=== PATIENT | male | born 1965 | race Caucasian/White ===

== ENCOUNTER → 2016-12-27 | Outpatient (CLI) | payer OTHER ==
[~2016-12-27] MED LIST: AVPAK AZITHROM250 M1 PO; CEFAZOLIN IV; CLINDAMYCIN300 MG PO; CUBICIN500 MG IV; CYCLOBENZAPRINE10 MG PO; DELTASONE5 MG PO; FOLIC ACID1 MG PO; HYDROCODONE BIT1 T11 PO; IBU800 M1 PO; KEFLEX500 MG PO; LASIX10 MG/M1 PO; LASIX20 MG PO; LEVAQUIN750 MG PO; LOMOTIL 0.025 M1 TA1 PO; MELOXICAM PO; MOBIC15 MG PO; MOTRIN600 MG PO; MOTRIN800 MG PO; NORFLEX100 MG PO; PERCOCET 325 MG1 TA2 PO; PERCOCET 325 MG1 TA7 PO; PREDNICOT10 MG PO; PREDNISONE10 MG PO; PREDNISONE20 MG PO; SULFAZINE500 MG PO; ZOFRAN ODT4 MG SL; [UNRECOGNIZED DRUG - OTHER] IV; [UNRECOGNIZED DRUG - OTHER] IV
[2016-12-27 08:33] LABS: BASO % 0.2 % (0.0-1.0); HEMATOCRIT 42.7 % (42.0-52.0); HEMOGLOBIN 14.7 g/dl (14.0-18.0); IG # 0.1 10*3/uL (0.0-0.1); LYMPH # 3.5 10*3/uL (1.3-4.4); LYMPH % 25.9 % (27.0-41.0); MEAN CELL VOLUME 92.4 fl (80.0-94.0); MEAN CORPUSCULAR HGB 31.8 pg (27.0-31.0); MEAN CORPUSCULAR HGB CONC 34.4 g/dl (33.0-37.0); MONO # 0.4 10*3/uL (0.1-1.0); MONO % 3.2 % (3.0-9.0); NEUT # 9.4 10*3/uL (2.3-7.9); NEUT % 69.7 % (47.0-73.0); PLATELET COUNT AUTOMATED 256 10*3/uL (130-400); RED BLOOD COUNT 4.62 10*6/uL (4.50-5.90); RED CELL DISTRI WIDTH 13.8 % (0-14.5); WHITE BLOOD COUNT 13.4 10*3/uL (4.8-10.8)
[2016-12-27 09:03] LABS: ALBUMIN 2.7 gm/dl (3.1-4.5); ALKALINE PHOSPHATASE 82 U/L (45-117); BILIRUBIN, DIRECT < 0.1 mg/dL (0.0-0.2); BILIRUBIN, TOTAL 0.4 mg/dl (0.2-1.0); C-REACTIVE PROTEIN 2.31 MG/DL (0-0.3); EST GLOM FILT AFRICAN AMERICAN > 60 ml/min; SGOT/AST 14 IU/L (3-35); SGPT/ALT 14 U/L (12-78); TOTAL PROTEIN 6.6 gm/dL (6.4-8.2)
== END | disposition home or self-care (01) ==
LOC: LAB 03:50 → RESCLI 03:50
PROVIDERS: Internal Medicine Rheumatology
DX: M06.9 Rheumatoid arthritis, unspecified (principal); Z79.899 Other long term (current) drug therapy

== ENCOUNTER → 2017-01-03 | Outpatient (CLI) | payer OTHER | END | disposition home or self-care (01) | LOC: LAB 02:07 → RESCLI 02:07 | DX: E03.8 Other specified hypothyroidism (principal) ==

== ENCOUNTER → 2017-04-11 | Outpatient (CLI) | payer OTHER | END | disposition home or self-care (01) | LOC: RESCLI 04:10 | DX: J44.1 Chronic obstructive pulmonary disease with (acute) exacerbation (principal); G47.30 Sleep apnea, unspecified; M06.9 Rheumatoid arthritis, unspecified; E66.01 Morbid (severe) obesity due to excess calories; R60.0 Localized edema; F17.210 Nicotine dependence, cigarettes, uncomplicated ==

== ENCOUNTER → 2017-06-06 | Outpatient (CLI) | payer OTHER | END | disposition home or self-care (01) | LOC: RESCLI 03:16 | DX: J44.9 Chronic obstructive pulmonary disease, unspecified (principal); M06.9 Rheumatoid arthritis, unspecified; F17.210 Nicotine dependence, cigarettes, uncomplicated; G47.30 Sleep apnea, unspecified; E66.01 Morbid (severe) obesity due to excess calories; J01.90 Acute sinusitis, unspecified; R60.0 Localized edema; E03.9 Hypothyroidism, unspecified; Z71.9 Counseling, unspecified; F17.200 Nicotine dependence, unspecified, uncomplicated ==

== ENCOUNTER → 2017-06-13 | Outpatient (CLI) | payer OTHER | END | disposition home or self-care (01) | LOC: RESCLI 01:58 | DX: J44.9 Chronic obstructive pulmonary disease, unspecified (principal); M06.9 Rheumatoid arthritis, unspecified; F17.210 Nicotine dependence, cigarettes, uncomplicated; G47.30 Sleep apnea, unspecified; E66.01 Morbid (severe) obesity due to excess calories; R60.0 Localized edema; E03.9 Hypothyroidism, unspecified; Z71.6 Tobacco abuse counseling ==

== ENCOUNTER 2017-07-23 12:05 | Emergency (ER) | payer OTHER ==
[~2017-07-23] VITALS: Ht 185.4 cm; Wt 124.7 kg
[2017-07-23] MEDS ORDERED: CEFADROXIL500 M1 PO (12:25)
== END 2017-07-23 13:43 | disposition home or self-care (01) ==
LOC: ED 12:05
DX: M70.21 Olecranon bursitis, right elbow (principal); F17.200 Nicotine dependence, unspecified, uncomplicated; Z88.8 Allergy status to other drugs, medicaments and biological substances; Z79.899 Other long term (current) drug therapy; Y93.89 Activity, other specified

== ENCOUNTER 2017-07-26 11:50 | Emergency (ER) | payer OTHER ==
[~2017-07-26] VITALS: Ht 185.4 cm; Wt 136.1 kg
[~2017-07-26 11:50] MED LIST changes: +CEFADROXIL500 M1 PO
[2017-07-26 12:48] LABS: BASO # 0.1 10*3/uL (0.0-0.1); BASO % 0.5 % (0.0-1.0); EOS % 0.1 % (1.0-4.0); HEMOGLOBIN 14.8 g/dl (14.0-18.0); LYMPH # 2.4 10*3/uL (1.3-4.4); LYMPH % 16.9 % (27.0-41.0); MEAN CELL VOLUME 90.3 fl (80.0-94.0); MEAN CORPUSCULAR HGB 31.1 pg (27.0-31.0); MEAN CORPUSCULAR HGB CONC 34.4 g/dl (33.0-37.0); MONO # 0.9 10*3/uL (0.1-1.0); MONO % 6.5 % (3.0-9.0); NEUT # 10.4 10*3/uL (2.3-7.9); NEUT % 73.9 % (47.0-73.0); PLATELET COUNT AUTOMATED 243 10*3/uL (130-400); RED BLOOD COUNT 4.76 10*6/uL (4.50-5.90); RED CELL DISTRI WIDTH 13.5 % (0-14.5); WHITE BLOOD COUNT 14.1 10*3/uL (4.8-10.8)
[2017-07-26 13:03] LABS: ALBUMIN 3.3 gm/dl (3.1-4.5); ALKALINE PHOSPHATASE 79 U/L (45-117); BUN 10 mg/dl (7-24); CHLORIDE 109 mmol/L (98-107); CREATININE 1.25 mg/dL (0.70-1.30); SGOT/AST 16 IU/L (3-35); SGPT/ALT 25 U/L (12-78); SODIUM 141 mmol/L (136-145); TOTAL PROTEIN 7.3 gm/dL (6.4-8.2)
== END 2017-07-26 16:06 | disposition short-term general hospital (02) ==
LOC: EDSTATUS 11:50 → ED 11:52
PROVIDERS: Physician Assistant
DX: M71.121 Other infective bursitis, right elbow (principal); Z88.8 Allergy status to other drugs, medicaments and biological substances; Z79.899 Other long term (current) drug therapy

== ENCOUNTER → 2017-09-11 | Outpatient (CLI) | payer OTHER | END | disposition home or self-care (01) | LOC: RESCLI 01:18 | DX: E03.9 Hypothyroidism, unspecified (principal); M06.9 Rheumatoid arthritis, unspecified; G47.30 Sleep apnea, unspecified; E66.01 Morbid (severe) obesity due to excess calories; J44.9 Chronic obstructive pulmonary disease, unspecified; J06.9 Acute upper respiratory infection, unspecified; R03.0 Elevated blood-pressure reading, without diagnosis of hypertension; R60.0 Localized edema; F17.210 Nicotine dependence, cigarettes, uncomplicated; Z71.6 Tobacco abuse counseling ==

== ENCOUNTER → 2017-10-10 | Outpatient (CLI) | payer OTHER | END | disposition home or self-care (01) | LOC: RESCLI 01:35 | DX: J44.1 Chronic obstructive pulmonary disease with (acute) exacerbation (principal); M06.9 Rheumatoid arthritis, unspecified; E03.8 Other specified hypothyroidism; E66.01 Morbid (severe) obesity due to excess calories; Z79.52 Long term (current) use of systemic steroids; Z72.0 Tobacco use ==

== ENCOUNTER → 2017-12-20 | Outpatient (CLI) | payer OTHER ==
[2017-12-20 11:47] LABS: HEMATOCRIT 50.6 % (42.0-52.0); MEAN CELL VOLUME 87.4 fl (80.0-94.0); MEAN CORPUSCULAR HGB 29.4 pg (27.0-31.0); MEAN CORPUSCULAR HGB CONC 33.6 g/dl (33.0-37.0); MEAN PLATELET VOLUME 9.8 fl (9.6-12.3); PLATELET COUNT AUTOMATED 338 10*3/uL (130-400); RED BLOOD COUNT 5.79 10*6/uL (4.50-5.90); RED CELL DISTRI WIDTH 13.4 % (0-14.5); WHITE BLOOD COUNT 16.9 10*3/uL (4.8-10.8)
[2017-12-20 11:52] LABS: ALBUMIN 3.2 gm/dl (3.1-4.5); ALKALINE PHOSPHATASE 98 U/L (45-117); BILIRUBIN, DIRECT < 0.1 mg/dL (0.0-0.2); CREATININE 1.13 mg/dL (0.70-1.30); SGOT/AST 14 IU/L (3-35); SGPT/ALT 20 U/L (12-78); TOTAL PROTEIN 7.8 gm/dL (6.4-8.2)
[2017-12-20 13:21] LABS: PLATELET SUFFICIENCY NORMAL (NORMAL); TOTAL CELLS COUNTED 100 #CELLS
== END | disposition home or self-care (01) ==
LOC: LAB 10:39
PROVIDERS: Internal Medicine Rheumatology
DX: M05.79 Rheumatoid arthritis with rheumatoid factor of multiple sites without organ or systems involvement (principal); Z79.899 Other long term (current) drug therapy

== ENCOUNTER → 2018-01-24 | Outpatient (CLI) | payer OTHER ==
[2018-01-24 12:47] LABS: URINE AMPHETAMINES < 1000 (1000ng/ml); URINE BARBITURATES < 200 (200ng/ml); URINE BENZODIAZEPINES < 200 (200ng/ml); URINE CANNABINOIDS (THC) < 50 (50ng/ml); URINE COCAINE < 300 (300ng/ml); URINE METHADONE < 300 (300ng/ml); URINE OPIATES > 300 (300ng/ml)
[2018-01-24 12:51] LABS: URINE PHENCYCLIDINE < 25 (25ng/ml)
== END | disposition home or self-care (01) ==
LOC: RESCLI 02:04 → LAB 02:04 → RESCLI 08:15
PROVIDERS: Internal Medicine
DX: M06.9 Rheumatoid arthritis, unspecified (principal)

== ENCOUNTER → 2018-02-07 | Outpatient (CLI) | payer OTHER | END | disposition home or self-care (01) | LOC: RESCLI 01:23 | DX: J44.9 Chronic obstructive pulmonary disease, unspecified (principal); F32.1 Major depressive disorder, single episode, moderate; E03.8 Other specified hypothyroidism; M06.9 Rheumatoid arthritis, unspecified; R60.9 Edema, unspecified; E66.01 Morbid (severe) obesity due to excess calories; G47.33 Obstructive sleep apnea (adult) (pediatric); Z87.891 Personal history of nicotine dependence ==

== ENCOUNTER → 2018-03-20 | Outpatient (CLI) | payer OTHER | END | disposition home or self-care (01) | LOC: RESCLI 02:12 | DX: E03.8 Other specified hypothyroidism (principal); F32.1 Major depressive disorder, single episode, moderate; J44.9 Chronic obstructive pulmonary disease, unspecified; M06.9 Rheumatoid arthritis, unspecified; G47.33 Obstructive sleep apnea (adult) (pediatric); E66.09 Other obesity due to excess calories; R60.9 Edema, unspecified; F17.210 Nicotine dependence, cigarettes, uncomplicated; Z68.39 Body mass index [BMI] 39.0-39.9, adult; Z88.8 Allergy status to other drugs, medicaments and biological substances ==

== ENCOUNTER → 2018-06-12 | Outpatient (CLI) | payer OTHER | END | disposition home or self-care (01) | LOC: RESCLI 03:42 | DX: F32.9 Major depressive disorder, single episode, unspecified (principal); M06.9 Rheumatoid arthritis, unspecified; R60.9 Edema, unspecified; E03.9 Hypothyroidism, unspecified; G47.30 Sleep apnea, unspecified; J44.1 Chronic obstructive pulmonary disease with (acute) exacerbation; L98.9 Disorder of the skin and subcutaneous tissue, unspecified; E66.9 Obesity, unspecified; F17.200 Nicotine dependence, unspecified, uncomplicated; Z71.6 Tobacco abuse counseling; Z79.899 Other long term (current) drug therapy ==

== ENCOUNTER → 2018-08-21 | Outpatient (CLI) | payer MEDICARE, MEDICAID ==
[2018-08-21 12:17] LABS: BASO # 0.1 10*3/uL (0.0-0.1); BASO % 0.5 % (0.0-1.0); EOS # 0.1 10*3/uL (0.0-0.4); EOS % 0.6 % (1.0-4.0); HEMATOCRIT 49.2 % (42.0-52.0); HEMOGLOBIN 16.6 g/dl (14.0-18.0); LYMPH # 3.5 10*3/uL (1.3-4.4); LYMPH % 25.1 % (27.0-41.0); MEAN CORPUSCULAR HGB 29.7 pg (27.0-31.0); MEAN CORPUSCULAR HGB CONC 33.7 g/dl (33.0-37.0); MONO % 6.8 % (3.0-9.0); NEUT # 9.3 10*3/uL (2.3-7.9); NEUT % 65.6 % (47.0-73.0); PLATELET COUNT AUTOMATED 280 10*3/uL (130-400); RED BLOOD COUNT 5.59 10*6/uL (4.50-5.90); RED CELL DISTRI WIDTH 13.8 % (0-14.5); WHITE BLOOD COUNT 14.1 10*3/uL (4.8-10.8)
[2018-08-21 12:36] LABS: ALBUMIN 3.4 gm/dl (3.1-4.5); BUN 10 mg/dl (7-24); CHLORIDE 107 mmol/L (98-107); CREATININE 1.15 mg/dL (0.70-1.30); SGOT/AST 13 IU/L (3-35); SGPT/ALT 18 U/L (12-78); SODIUM 139 mmol/L (136-145)
[2018-08-21 12:38] LABS: ALKALINE PHOSPHATASE 95 U/L (45-117); TOTAL PROTEIN 7.8 gm/dL (6.4-8.2)
== END | disposition home or self-care (01) ==
LOC: RESCLI 00:50
PROVIDERS: Internal Medicine
DX: Z00.01 Encounter for general adult medical examination with abnormal findings (principal); J44.9 Chronic obstructive pulmonary disease, unspecified; M06.9 Rheumatoid arthritis, unspecified; E66.09 Other obesity due to excess calories; E03.9 Hypothyroidism, unspecified; G47.30 Sleep apnea, unspecified; G89.29 Other chronic pain; R60.0 Localized edema; R42 Dizziness and giddiness; Z71.6 Tobacco abuse counseling; Z79.899 Other long term (current) drug therapy; Z88.8 Allergy status to other drugs, medicaments and biological substances; Z72.0 Tobacco use

== ENCOUNTER → 2019-03-19 | Outpatient (CLI) | payer MEDICARE, MEDICAID ==
[~2019-03-19] MED LIST changes: +MEDROL DOSEPAK4 MG PO; +NAPROSYN500 MG PO
[2019-03-19 15:04] LABS: HEMATOCRIT 48.4 % (42.0-52.0); HEMOGLOBIN 16.5 g/dl (14.0-18.0); MEAN CELL VOLUME 87.5 fl (80.0-94.0); MEAN CORPUSCULAR HGB 29.8 pg (27.0-31.0); MEAN CORPUSCULAR HGB CONC 34.1 g/dl (33.0-37.0); MEAN PLATELET VOLUME 9.6 fl (9.6-12.3); PLATELET COUNT AUTOMATED 302 10*3/uL (130-400); RED BLOOD COUNT 5.53 10*6/uL (4.50-5.90); RED CELL DISTRI WIDTH 13.5 % (0-14.5); WHITE BLOOD COUNT 14.6 10*3/uL (4.8-10.8)
[2019-03-19 15:23] LABS: BASOPHILS 1 % (0-1); PLATELET SUFFICIENCY NORMAL (NORMAL); TOTAL CELLS COUNTED 100 #CELLS
[2019-03-19 15:34] LABS: ALBUMIN 3.5 gm/dl (3.1-4.5); ALKALINE PHOSPHATASE 115 U/L (45-117); BUN 12 mg/dl (7-24); CHLORIDE 109 mmol/L (98-107); CHOLESTEROL 173 mg/dL (<200); CREATININE 1.23 mg/dL (0.70-1.30); HDL CHOLESTEROL 34 mg/dl (40-60); LDL CHOLESTEROL 114 mg/dL (9-159); POTASSIUM 4.2 mmol/L (3.5-5.1); SGOT/AST 11 IU/L (3-35); SGPT/ALT 17 U/L (12-78); SODIUM 139 mmol/L (136-145); TOTAL PROTEIN 7.9 gm/dL (6.4-8.2); TRIGLYCERIDES 124 mg/dl (<150); VLDL CHOLESTEROL 25 mg/dL (6-40)
[2019-03-20 11:05] LABS: HEP B CORE AB TOTAL 006718 Negative (Negative); HEPATITIS B SURFACE AB 006395 Non Reactive (.); HEPATITIS B SURFACE AG Negative (Negative); HEPATITIS Be ANTIGEN 006619 Negative (Negative)
[2019-03-20 16:09] LABS: AB TO HEPATITIS Be AG 006635 Negative (Negative)
[2019-03-22 00:08] LABS: TB1 Ag VALUE 0.04 IU/mL (.)
== END | disposition home or self-care (01) ==
LOC: RESCLI 00:25
PROVIDERS: Internal Medicine
DX: M50.30 Other cervical disc degeneration, unspecified cervical region (principal); M85.88 Other specified disorders of bone density and structure, other site; M48.02 Spinal stenosis, cervical region; E03.9 Hypothyroidism, unspecified; R60.0 Localized edema; M06.9 Rheumatoid arthritis, unspecified; G89.29 Other chronic pain; G47.30 Sleep apnea, unspecified; J44.9 Chronic obstructive pulmonary disease, unspecified; E53.8 Deficiency of other specified B group vitamins; E78.5 Hyperlipidemia, unspecified; M25.512 Pain in left shoulder; E66.9 Obesity, unspecified; F17.200 Nicotine dependence, unspecified, uncomplicated; Z79.899 Other long term (current) drug therapy; Z88.8 Allergy status to other drugs, medicaments and biological substances

== ENCOUNTER → 2019-06-07 | Outpatient (CLI) | payer MEDICARE, MEDICAID ==
[2019-06-07 12:27] LABS: BASO % 0.3 % (0.0-1.0); EOS % 0.3 % (1.0-4.0); HEMATOCRIT 45.6 % (42.0-52.0); HEMOGLOBIN 16.2 g/dl (14.0-18.0); LYMPH # 1.8 10*3/uL (1.3-4.4); LYMPH % 15.3 % (27.0-41.0); MEAN CELL VOLUME 85.7 fl (80.0-94.0); MEAN CORPUSCULAR HGB 30.5 pg (27.0-31.0); MEAN CORPUSCULAR HGB CONC 35.5 g/dl (33.0-37.0); MEAN PLATELET VOLUME 9.8 fl (9.6-12.3); MONO # 0.6 10*3/uL (0.1-1.0); MONO % 4.8 % (3.0-9.0); NEUT # 9.4 10*3/uL (2.3-7.9); NEUT % 78.3 % (47.0-73.0); PLATELET COUNT AUTOMATED 274 10*3/uL (130-400); RED BLOOD COUNT 5.32 10*6/uL (4.50-5.90); RED CELL DISTRI WIDTH 13.5 % (0-14.5)
[2019-06-07 12:55] LABS: ALBUMIN 3.3 gm/dl (3.1-4.5); ALKALINE PHOSPHATASE 95 U/L (45-117); BUN 14 mg/dl (7-24); CHLORIDE 110 mmol/L (98-107); CREATININE 1.23 mg/dL (0.70-1.30); POTASSIUM 4.2 mmol/L (3.5-5.1); SGOT/AST 13 IU/L (3-35); SGPT/ALT 16 U/L (12-78); SODIUM 138 mmol/L (136-145)
== END | disposition home or self-care (01) ==
LOC: LAB 11:34
PROVIDERS: Internal Medicine Rheumatology
DX: M05.79 Rheumatoid arthritis with rheumatoid factor of multiple sites without organ or systems involvement (principal); Z79.899 Other long term (current) drug therapy

== ENCOUNTER → 2019-06-27 | Outpatient (CLI) | payer MEDICARE, MEDICAID | END | disposition home or self-care (01) | LOC: RESCLI 00:28 | DX: R60.0 Localized edema (principal); E03.9 Hypothyroidism, unspecified; M06.9 Rheumatoid arthritis, unspecified; J44.9 Chronic obstructive pulmonary disease, unspecified; G47.30 Sleep apnea, unspecified; F17.200 Nicotine dependence, unspecified, uncomplicated; E53.8 Deficiency of other specified B group vitamins; Z79.899 Other long term (current) drug therapy ==

== ENCOUNTER → 2019-07-19 | Outpatient (CLI) | payer MEDICARE, MEDICAID | END | disposition home or self-care (01) | LOC: RAD 12:35 | DX: M19.022 Primary osteoarthritis, left elbow (principal); M19.021 Primary osteoarthritis, right elbow; M17.0 Bilateral primary osteoarthritis of knee; M25.572 Pain in left ankle and joints of left foot; M25.571 Pain in right ankle and joints of right foot ==

== ENCOUNTER → 2019-08-29 | Outpatient (CLI) | payer MEDICARE, MEDICAID ==
[2019-08-29 10:45] LABS: BASO # 0.1 10*3/uL (0.0-0.1); BASO % 0.6 % (0.0-1.0); EOS # 0.1 10*3/uL (0.0-0.4); EOS % 0.7 % (1.0-4.0); HEMOGLOBIN 16.4 g/dl (14.0-18.0); LYMPH # 3.6 10*3/uL (1.3-4.4); LYMPH % 30.4 % (27.0-41.0); MEAN CELL VOLUME 87.3 fl (80.0-94.0); MEAN CORPUSCULAR HGB 29.8 pg (27.0-31.0); MEAN CORPUSCULAR HGB CONC 34.2 g/dl (33.0-37.0); MEAN PLATELET VOLUME 9.2 fl (9.6-12.3); MONO # 0.8 10*3/uL (0.1-1.0); MONO % 6.4 % (3.0-9.0); NEUT # 7.2 10*3/uL (2.3-7.9); NEUT % 60.3 % (47.0-73.0); PLATELET COUNT AUTOMATED 290 10*3/uL (130-400); RED CELL DISTRI WIDTH 12.9 % (0-14.5); WHITE BLOOD COUNT 11.9 10*3/uL (4.8-10.8)
[2019-08-29 11:12] LABS: ALKALINE PHOSPHATASE 89 U/L (45-117); BUN 12 mg/dl (7-24); CHLORIDE 109 mmol/L (98-107); CHOLESTEROL 148 mg/dL (<200); CREATININE 1.11 mg/dL (0.70-1.30); FREE T4 1.04 ng/dl (0.76-1.46); HDL CHOLESTEROL 31 mg/dl (40-60); LDL CHOLESTEROL 90 mg/dL (9-159); POTASSIUM 3.9 mmol/L (3.5-5.1); SGOT/AST 12 IU/L (3-35); SGPT/ALT 17 U/L (12-78); SODIUM 139 mmol/L (136-145); TOTAL PROTEIN 6.8 gm/dL (6.4-8.2); TRIGLYCERIDES 134 mg/dl (<150); VLDL CHOLESTEROL 27 mg/dL (6-40)
[2019-08-30 08:08] LABS: ALPHA-1-ANTITRYPSIN, SERUM 170 mg/dL (101-187); RHEUMATOID ARTHRITIS FACTOR 410.7 IU/mL (0.0-13.9)
[2019-08-31 00:06] LABS: CCP ANTIBODIES IGG/IGA >250 units (0-19)
== END | disposition home or self-care (01) ==
LOC: LAB 10:19
PROVIDERS: Internal Medicine
DX: Z13.220 Encounter for screening for lipoid disorders (principal); J43.9 Emphysema, unspecified; M06.9 Rheumatoid arthritis, unspecified; E66.01 Morbid (severe) obesity due to excess calories; R07.89 Other chest pain; Z79.899 Other long term (current) drug therapy

== ENCOUNTER 2019-11-23 19:24 | Emergency (ER) | payer MEDICARE, MEDICAID ==
[2019-11-23] MEDS ORDERED: Orphenadrine C100 MG PO (21:35)
[2019-11-23] MEDS ORDERED: Motrin,Rufen800 MG PO (21:35)
== END 2019-11-23 21:31 | disposition left against medical advice (07) ==
LOC: ED 19:24
DX: M43.6 Torticollis (principal); J44.9 Chronic obstructive pulmonary disease, unspecified; M06.9 Rheumatoid arthritis, unspecified; Z88.8 Allergy status to other drugs, medicaments and biological substances; Z79.899 Other long term (current) drug therapy

== ENCOUNTER → 2019-12-04 | Outpatient (CLI) | payer MEDICARE, MEDICAID ==
[~2019-12-04] MED LIST changes: +Motrin,Rufen800 MG PO; +Orphenadrine C100 MG PO
[2019-12-04 14:57] LABS: BASO # 0.1 10*3/uL (0.0-0.1); BASO % 0.3 % (0.0-1.0); EOS # 0.1 10*3/uL (0.0-0.4); EOS % 0.3 % (1.0-4.0); HEMATOCRIT 47.1 % (42.0-52.0); LYMPH # 3.5 10*3/uL (1.3-4.4); LYMPH % 23.7 % (27.0-41.0); MEAN CELL VOLUME 89.4 fl (80.0-94.0); MEAN CORPUSCULAR HGB 30.4 pg (27.0-31.0); MEAN PLATELET VOLUME 9.4 fl (9.6-12.3); MONO # 0.6 10*3/uL (0.1-1.0); MONO % 4.1 % (3.0-9.0); NEUT # 10.4 10*3/uL (2.3-7.9); NEUT % 70.9 % (47.0-73.0); PLATELET COUNT AUTOMATED 281 10*3/uL (130-400); RED BLOOD COUNT 5.27 10*6/uL (4.50-5.90); RED CELL DISTRI WIDTH 14.2 % (0-14.5); WHITE BLOOD COUNT 14.7 10*3/uL (4.8-10.8)
[2019-12-04 15:13] LABS: ALBUMIN 2.9 gm/dl (3.1-4.5); BILIRUBIN, DIRECT 0.1 mg/dL (0.0-0.2); CREATININE 1.11 mg/dL (0.70-1.30); SGOT/AST 10 IU/L (3-35); SGPT/ALT 14 U/L (12-78); TOTAL PROTEIN 6.6 gm/dL (6.4-8.2)
[2019-12-04 15:14] LABS: ALKALINE PHOSPHATASE 93 U/L (45-117)
== END | disposition home or self-care (01) ==
LOC: LAB 14:32
PROVIDERS: Physician Assistant
DX: M05.79 Rheumatoid arthritis with rheumatoid factor of multiple sites without organ or systems involvement (principal); Z79.899 Other long term (current) drug therapy

== ENCOUNTER → 2019-12-07 | Outpatient (CLI) | payer MEDICARE, MEDICAID | END | disposition home or self-care (01) | LOC: RAD 16:01 | DX: M17.12 Unilateral primary osteoarthritis, left knee (principal); M25.761 Osteophyte, right knee; M06.9 Rheumatoid arthritis, unspecified ==

== ENCOUNTER 2020-03-11 19:37 | Emergency (ER) | payer MEDICARE, MEDICAID | END 2020-03-11 22:10 | disposition home or self-care (01) | LOC: ED 19:37 | DX: S40.022A Contusion of left upper arm, initial encounter (principal); S40.021A Contusion of right upper arm, initial encounter; M25.532 Pain in left wrist; M06.9 Rheumatoid arthritis, unspecified; F17.200 Nicotine dependence, unspecified, uncomplicated; Z88.8 Allergy status to other drugs, medicaments and biological substances; Z88.6 Allergy status to analgesic agent; Z79.899 Other long term (current) drug therapy; W01.198A Fall on same level from slipping, tripping and stumbling with subsequent striking against other object, initial encounter; Y93.89 Activity, other specified; Y92.89 Other specified places as the place of occurrence of the external cause; Y99.8 Other external cause status ==

== ENCOUNTER → 2020-04-23 | Outpatient (CLI) | payer MEDICARE, MEDICAID ==
[2020-04-23 11:09] LABS: BASO % 0.2 % (0.0-1.0); EOS % 0.1 % (1.0-4.0); HEMATOCRIT 44.9 % (42.0-52.0); LYMPH # 4.8 10*3/uL (1.3-4.4); LYMPH % 28.9 % (27.0-41.0); MEAN CELL VOLUME 88.6 fl (80.0-94.0); MEAN CORPUSCULAR HGB 29.2 pg (27.0-31.0); MEAN PLATELET VOLUME 9.7 fl (9.6-12.3); MONO % 5.8 % (3.0-9.0); NEUT # 10.7 10*3/uL (2.3-7.9); NEUT % 64.3 % (47.0-73.0); PLATELET COUNT AUTOMATED 273 10*3/uL (130-400); RED BLOOD COUNT 5.07 10*6/uL (4.50-5.90); RED CELL DISTRI WIDTH 14.4 % (0-14.5); WHITE BLOOD COUNT 16.7 10*3/uL (4.8-10.8)
[2020-04-23 11:36] LABS: ALBUMIN 3.1 gm/dl (3.1-4.5); BUN 19 mg/dl (7-24); CHLORIDE 110 mmol/L (98-107); CREATININE 1.06 mg/dL (0.70-1.30); POTASSIUM 3.8 mmol/L (3.5-5.1); SGOT/AST 9 IU/L (3-35); SGPT/ALT 15 U/L (12-78); SODIUM 141 mmol/L (136-145); TOTAL PROTEIN 6.9 gm/dL (6.4-8.2)
[2020-04-23 11:37] LABS: ALKALINE PHOSPHATASE 104 U/L (45-117)
== END | disposition home or self-care (01) ==
LOC: LAB 10:36
PROVIDERS: Internal Medicine Rheumatology
DX: I10 Essential (primary) hypertension (principal); M05.79 Rheumatoid arthritis with rheumatoid factor of multiple sites without organ or systems involvement; Z79.1 Long term (current) use of non-steroidal anti-inflammatories (NSAID)

== ENCOUNTER → 2021-02-05 | Outpatient (CLI) | payer OTHER, MEDICAID ==
[2021-02-05 08:46] LABS: HEMATOCRIT 45.2 % (42.0-52.0); MEAN CELL VOLUME 90.2 fl (80.0-94.0); MEAN CORPUSCULAR HGB 29.7 pg (27.0-31.0); MEAN PLATELET VOLUME 9.9 fl (9.6-12.3); PLATELET COUNT AUTOMATED 274 10*3/uL (130-400); RED BLOOD COUNT 5.01 10*6/uL (4.50-5.90); RED CELL DISTRI WIDTH 13.8 % (0-14.5); WHITE BLOOD COUNT 14.2 10*3/uL (4.8-10.8)
[2021-02-05 09:03] LABS: ALBUMIN 3.1 gm/dl (3.1-4.5); ALKALINE PHOSPHATASE 97 U/L (45-117); BUN 13 mg/dl (7-24); CHLORIDE 109 mmol/L (98-107); CREATININE 1.38 mg/dL (0.70-1.30); POTASSIUM 3.8 mmol/L (3.5-5.1); SGOT/AST 10 IU/L (3-35); SGPT/ALT 15 U/L (12-78); SODIUM 139 mmol/L (136-145); TOTAL PROTEIN 6.7 gm/dL (6.4-8.2)
[2021-02-05 09:58] LABS: PLATELET SUFFICIENCY NORMAL (NORMAL); TOTAL CELLS COUNTED 100 #CELLS
== END | disposition home or self-care (01) ==
LOC: LAB 08:28
PROVIDERS: ATTEND Internal Medicine Rheumatology
DX: I10 Essential (primary) hypertension (principal); M05.79 Rheumatoid arthritis with rheumatoid factor of multiple sites without organ or systems involvement; Z79.1 Long term (current) use of non-steroidal anti-inflammatories (NSAID); Z79.899 Other long term (current) drug therapy

== ENCOUNTER → 2021-05-19 | Outpatient (CLI) | payer OTHER, MEDICAID ==
[2021-05-20 13:07] LABS: ANTI-RNP ANTIBODIES 0.2 AI (0.0-0.9)
== END | disposition home or self-care (01) ==
LOC: LAB 10:09
PROVIDERS: ATTEND Internal Medicine
DX: M06.9 Rheumatoid arthritis, unspecified (principal)

== ENCOUNTER → 2021-10-13 | Outpatient (CLI) | payer OTHER, MEDICAID | LOC: COVID19 15:54 | PROVIDERS: ATTEND Internal Medicine | DX: U07.1 COVID-19 (principal) ==

== ENCOUNTER 2021-10-31 06:58 | Emergency (ER) | payer OTHER, MEDICAID ==
[~2021-10-31] VITALS: Ht 185.4 cm; Wt 107.5 kg
[2021-10-31] MEDS ORDERED: VOLTAREN ARTHRI20 GM T (07:51)
== END 2021-10-31 07:55 | disposition home or self-care (01) ==
LOC: ED 06:58
DX: M25.462 Effusion, left knee (principal); M71.22 Synovial cyst of popliteal space [Baker], left knee; Z88.8 Allergy status to other drugs, medicaments and biological substances; Z79.899 Other long term (current) drug therapy; J45.909 Unspecified asthma, uncomplicated; Z87.891 Personal history of nicotine dependence; Z98.890 Other specified postprocedural states

== ENCOUNTER → 2022-07-29 | Outpatient (CLI) | payer OTHER, MEDICAID ==
[~2022-07-29] MED LIST changes: +24 HOUR ALLER15.8 ML NAS; +ARAVA20 MG PO; +AZELASTINE NAS; +BREO ELLIPTA 11 EACH INH; +CITALOPRAM40 MG PO; +DIALYVITE 800800 MCG PO; +GABAPENTIN400 MG PO; +LEVOTHYROXINE25 MCG PO; +NEURONTIN400 MG PO; +OXYCODONE5 M1 PO; +PROAIR HFA8.5 GM INH; +SINGULAIR10 M1 PO; +SPIRIVA RESPIMAT4 G1 INH; +VOLTAREN ARTHRI20 GM T
== END | disposition home or self-care (01) ==
LOC: LAB 00:50
PROVIDERS: ATTEND Internal Medicine Rheumatology
DX: M05.79 Rheumatoid arthritis with rheumatoid factor of multiple sites without organ or systems involvement (principal)

== ENCOUNTER → 2022-10-10 | Outpatient (CLI) | payer OTHER, MEDICAID ==
[2022-10-10 09:56] LABS: HEMATOCRIT 46.4 % (42.0-52.0); MEAN CELL VOLUME 88.4 fl (80.0-94.0); MEAN CORPUSCULAR HGB 29.5 pg (27.0-31.0); MEAN CORPUSCULAR HGB CONC 33.4 g/dl (33.0-37.0); MEAN PLATELET VOLUME 9.8 fl (9.6-12.3); PLATELET COUNT AUTOMATED 242 10*3/uL (130-400); RED BLOOD COUNT 5.25 10*6/uL (4.50-5.90); RED CELL DISTRI WIDTH 13.7 % (0-14.5); WHITE BLOOD COUNT 15.6 10*3/uL (4.8-10.8)
[2022-10-10 10:20] LABS: MANUAL DIFF REFLEX YES
[2022-10-10 10:24] LABS: ALKALINE PHOSPHATASE 109 U/L (46-116); BUN 16 mg/dl (9-23); CHLORIDE 106 mmol/L (98-107); POTASSIUM 3.7 mmol/L (3.4-5.1); SGPT/ALT 25 U/L (10-49); TOTAL PROTEIN 6.9 gm/dL (6.0-8.0)
[2022-10-10 11:27] LABS: BASOPHILS 1 % (0-1); PLATELET SUFFICIENCY NORMAL (NORMAL); TOTAL CELLS COUNTED 100 #CELLS
== END | disposition home or self-care (01) ==
LOC: LAB 09:18
PROVIDERS: ATTEND Internal Medicine Rheumatology
DX: I10 Essential (primary) hypertension (principal)

== ENCOUNTER → 2022-10-14 | Outpatient (CLI) | payer OTHER, MEDICAID ==
[2022-10-14 13:31] LABS: BASO # 0.1 10*3/uL (0.0-0.1); BASO % 0.6 % (0.0-1.0); EOS % 0.2 % (1.0-4.0); HEMATOCRIT 47.7 % (42.0-52.0); LYMPH # 3.2 10*3/uL (1.3-4.4); LYMPH % 20.3 % (27.0-41.0); MEAN CELL VOLUME 90.2 fl (80.0-94.0); MEAN CORPUSCULAR HGB 29.3 pg (27.0-31.0); MEAN CORPUSCULAR HGB CONC 32.5 g/dl (33.0-37.0); MEAN PLATELET VOLUME 9.8 fl (9.6-12.3); MONO # 1.4 10*3/uL (0.1-1.0); MONO % 9.3 % (3.0-9.0); NEUT # 10.5 10*3/uL (2.3-7.9); NEUT % 68.1 % (47.0-73.0); PLATELET COUNT AUTOMATED 261 10*3/uL (130-400); RED BLOOD COUNT 5.29 10*6/uL (4.50-5.90); RED CELL DISTRI WIDTH 13.9 % (0-14.5); WHITE BLOOD COUNT 15.5 10*3/uL (4.8-10.8)
[2022-10-14 14:34] LABS: ALKALINE PHOSPHATASE 105 U/L (46-116); BUN 12 mg/dl (9-23); CHLORIDE 107 mmol/L (98-107); POTASSIUM 4.2 mmol/L (3.4-5.1); SGPT/ALT 21 U/L (10-49); TOTAL PROTEIN 7.1 gm/dL (6.0-8.0)
[2022-10-18 18:06] LABS: TB1 Ag VALUE 0.07 IU/mL (.)
== END | disposition home or self-care (01) ==
LOC: LAB 12:45
PROVIDERS: ATTEND Internal Medicine Rheumatology
DX: M05.79 Rheumatoid arthritis with rheumatoid factor of multiple sites without organ or systems involvement (principal); Z11.59 Encounter for screening for other viral diseases; Z79.899 Other long term (current) drug therapy; I10 Essential (primary) hypertension

== ENCOUNTER → 2022-11-07 | Outpatient (CLI) | payer OTHER, MEDICAID ==
[~2022-11-07] MED LIST changes: +MODAFINIL200 M1 PO; +REMICADE100 MG IV
[2022-11-08 06:07] LABS: HEPATITIS B SURFACE AG Negative (Negative)
== END | disposition home or self-care (01) ==
LOC: LAB 11:47
PROVIDERS: ATTEND Internal Medicine Rheumatology
DX: Z11.59 Encounter for screening for other viral diseases (principal); Z79.899 Other long term (current) drug therapy; M05.79 Rheumatoid arthritis with rheumatoid factor of multiple sites without organ or systems involvement

== ENCOUNTER → 2023-01-04 | Outpatient (CLI) | payer OTHER, MEDICAID ==
[2023-01-04 11:59] LABS: BASO # 0.1 10*3/uL (0.0-0.1); BASO % 0.8 % (0.0-1.0); EOS # 0.1 10*3/uL (0.0-0.4); EOS % 0.4 % (1.0-4.0); HEMATOCRIT 46.6 % (42.0-52.0); LYMPH # 3.4 10*3/uL (1.3-4.4); LYMPH % 28.8 % (27.0-41.0); MEAN CELL VOLUME 90.3 fl (80.0-94.0); MEAN CORPUSCULAR HGB 30.2 pg (27.0-31.0); MEAN CORPUSCULAR HGB CONC 33.5 g/dl (33.0-37.0); MEAN PLATELET VOLUME 9.5 fl (9.6-12.3); MONO # 1.3 10*3/uL (0.1-1.0); MONO % 10.9 % (3.0-9.0); NEUT # 6.7 10*3/uL (2.3-7.9); NEUT % 57.1 % (47.0-73.0); PLATELET COUNT AUTOMATED 234 10*3/uL (130-400); RED BLOOD COUNT 5.16 10*6/uL (4.50-5.90); RED CELL DISTRI WIDTH 13.7 % (0-14.5); WHITE BLOOD COUNT 11.8 10*3/uL (4.8-10.8)
[2023-01-04 12:37] LABS: ALKALINE PHOSPHATASE 99 U/L (46-116); BUN 13 mg/dl (9-23); CHLORIDE 110 mmol/L (98-107); POTASSIUM 4.2 mmol/L (3.4-5.1); SGPT/ALT 19 U/L (10-49); TOTAL PROTEIN 7.1 gm/dL (6.0-8.0)
== END | disposition home or self-care (01) ==
LOC: LAB 11:35
PROVIDERS: ATTEND Internal Medicine Rheumatology
DX: M05.79 Rheumatoid arthritis with rheumatoid factor of multiple sites without organ or systems involvement (principal)

== ENCOUNTER 2023-02-15 16:33 | Emergency (ER) | payer OTHER, MEDICAID ==
[~2023-02-15] VITALS: Ht 185.4 cm; Wt 128.4 kg
[2023-02-15] MEDS ORDERED: AMOX-CLAV 875-1 EACH PO (18:22)
[2023-02-15] MEDS ORDERED: HYDROCODONE-AC1 EAC1 PO (18:24)
== END 2023-02-15 18:40 | disposition home or self-care (01) ==
LOC: ED 16:33
DX: S60.511A Abrasion of right hand, initial encounter (principal); M06.9 Rheumatoid arthritis, unspecified; J44.9 Chronic obstructive pulmonary disease, unspecified; E03.9 Hypothyroidism, unspecified; Z88.6 Allergy status to analgesic agent; Z88.8 Allergy status to other drugs, medicaments and biological substances; Z98.890 Other specified postprocedural states; Z90.89 Acquired absence of other organs; Z98.42 Cataract extraction status, left eye; Z98.41 Cataract extraction status, right eye; W55.03XA Scratched by cat, initial encounter; Y93.89 Activity, other specified; Y92.89 Other specified places as the place of occurrence of the external cause; Y99.8 Other external cause status

== ENCOUNTER → 2023-04-12 | Outpatient (CLI) | payer OTHER, MEDICAID ==
[~2023-04-12] MED LIST changes: +AMOX-CLAV 875-1 EACH PO; +HYDROCODONE-AC1 EAC1 PO
== END | disposition home or self-care (01) ==
LOC: RAD 11:49
PROVIDERS: ATTEND Chiropractor
DX: M51.36 Other intervertebral disc degeneration, lumbar region (principal); M48.061 Spinal stenosis, lumbar region without neurogenic claudication; M25.78 Osteophyte, vertebrae

== ENCOUNTER → 2023-09-05 | Outpatient (CLI) | payer OTHER, MEDICAID ==
[~2023-09-05] MED LIST changes: +PERCOCET 5-3251 EACH PO
[2023-09-05 09:19] LABS: BASO # 0.1 10*3/uL (0.0-0.1); BASO % 0.7 % (0.0-1.0); EOS # 0.1 10*3/uL (0.0-0.4); EOS % 0.8 % (1.0-4.0); LYMPH # 3.6 10*3/uL (1.3-4.4); LYMPH % 34.3 % (27.0-41.0); MEAN CELL VOLUME 87.4 fl (80.0-94.0); MEAN CORPUSCULAR HGB 29.9 pg (27.0-31.0); MEAN CORPUSCULAR HGB CONC 34.3 g/dl (33.0-37.0); MEAN PLATELET VOLUME 9.5 fl (9.6-12.3); MONO # 0.7 10*3/uL (0.1-1.0); MONO % 6.6 % (3.0-9.0); NEUT # 5.9 10*3/uL (2.3-7.9); NEUT % 56.2 % (47.0-73.0); PLATELET COUNT AUTOMATED 260 10*3/uL (130-400); RED BLOOD COUNT 5.38 10*6/uL (4.50-5.90); RED CELL DISTRI WIDTH 14.2 % (0-14.5); WHITE BLOOD COUNT 10.5 10*3/uL (4.8-10.8)
[2023-09-05 09:50] LABS: ALKALINE PHOSPHATASE 108 U/L (46-116); BUN 8 mg/dl (9-23); CHLORIDE 107 mmol/L (98-107); POTASSIUM 4.1 mmol/L (3.4-5.1); SGPT/ALT 12 U/L (5-49); TOTAL PROTEIN 7.3 gm/dL (6.0-8.0)
== END | disposition home or self-care (01) ==
LOC: LAB 08:55
PROVIDERS: Internal Medicine Rheumatology; ATTEND Internal Medicine
DX: M05.79 Rheumatoid arthritis with rheumatoid factor of multiple sites without organ or systems involvement (principal)

== ENCOUNTER → 2023-11-29 | Outpatient (CLI) | payer OTHER, MEDICAID ==
[~2023-11-29] MED LIST changes: +DEXAMETHASONE IJ
[2023-11-29 07:32] LABS: BASO # 0.1 10*3/uL (0.0-0.1); BASO % 0.6 % (0.0-1.0); EOS # 0.1 10*3/uL (0.0-0.4); EOS % 0.6 % (1.0-4.0); HEMATOCRIT 49.1 % (42.0-52.0); LYMPH # 3.9 10*3/uL (1.3-4.4); LYMPH % 29.3 % (27.0-41.0); MEAN CELL VOLUME 88.9 fl (80.0-94.0); MEAN CORPUSCULAR HGB 30.1 pg (27.0-31.0); MEAN CORPUSCULAR HGB CONC 33.8 g/dl (33.0-37.0); MEAN PLATELET VOLUME 9.4 fl (9.6-12.3); MONO # 0.7 10*3/uL (0.1-1.0); MONO % 5.4 % (3.0-9.0); NEUT # 8.3 10*3/uL (2.3-7.9); NEUT % 62.7 % (47.0-73.0); PLATELET COUNT AUTOMATED 236 10*3/uL (130-400); RED BLOOD COUNT 5.52 10*6/uL (4.50-5.90); RED CELL DISTRI WIDTH 13.3 % (0-14.5); WHITE BLOOD COUNT 13.2 10*3/uL (4.8-10.8)
[2023-11-29 07:55] LABS: ALKALINE PHOSPHATASE 99 U/L (46-116); BUN 11 mg/dl (9-23); CHLORIDE 106 mmol/L (98-107); POTASSIUM 4.2 mmol/L (3.4-5.1); SGPT/ALT 10 U/L (5-49); TOTAL PROTEIN 7.6 gm/dL (6.0-8.0)
== END | disposition home or self-care (01) ==
LOC: LAB 08:39
PROVIDERS: ATTEND Internal Medicine Rheumatology
DX: M05.79 Rheumatoid arthritis with rheumatoid factor of multiple sites without organ or systems involvement (principal); Z79.1 Long term (current) use of non-steroidal anti-inflammatories (NSAID); Z79.899 Other long term (current) drug therapy

== ENCOUNTER 2024-01-25 07:29 | Emergency (ER) | payer OTHER, MEDICAID ==
[~2024-01-25] VITALS: Ht 185.4 cm; Wt 129.3 kg
[2024-01-25] MEDS ORDERED: Albuterol Sulf/Ipratropium 3 ML VIAL NEB ONE ×2 (07:55→09:05)
[2024-01-25 08:09] LABS: BASO % 0.4 % (0.0-1.0); EOS % 0.2 % (1.0-4.0); HEMATOCRIT 46.6 % (42.0-52.0); LYMPH # 3.1 10*3/uL (1.3-4.4); LYMPH % 33.8 % (27.0-41.0); MEAN CELL VOLUME 89.8 fl (80.0-94.0); MEAN CORPUSCULAR HGB 28.9 pg (27.0-31.0); MEAN CORPUSCULAR HGB CONC 32.2 g/dl (33.0-37.0); MEAN PLATELET VOLUME 9.6 fl (9.6-12.3); MONO # 0.5 10*3/uL (0.1-1.0); NEUT # 5.2 10*3/uL (2.3-7.9); NEUT % 57.7 % (47.0-73.0); PLATELET COUNT AUTOMATED 208 10*3/uL (130-400); RED BLOOD COUNT 5.19 10*6/uL (4.50-5.90); RED CELL DISTRI WIDTH 13.4 % (0-14.5)
[2024-01-25 08:31] LABS: ALKALINE PHOSPHATASE 90 U/L (46-116); BUN 12 mg/dl (9-23); CHLORIDE 110 mmol/L (98-107); POTASSIUM 3.9 mmol/L (3.4-5.1); SGPT/ALT 12 U/L (5-49); TOTAL PROTEIN 6.5 gm/dL (6.0-8.0)
[2024-01-25] MEDS ORDERED: PREDNISONE10 MG PO (09:08)
[2024-01-25] MEDS ORDERED: LEVOFLOXACIN750 M2 PO (09:08)
== END 2024-01-25 09:33 | disposition home or self-care (01) ==
LOC: ED 07:29
PROVIDERS: Internal Medicine
DX: J44.1 Chronic obstructive pulmonary disease with (acute) exacerbation (principal); Z88.6 Allergy status to analgesic agent; Z88.8 Allergy status to other drugs, medicaments and biological substances; Z98.890 Other specified postprocedural states; Z87.891 Personal history of nicotine dependence

== ENCOUNTER 2024-04-29 17:55 | Emergency (ER) | payer OTHER, MEDICAID ==
[~2024-04-29] VITALS: Ht 185.4 cm; Wt 122.5 kg
[~2024-04-29 17:55] MED LIST changes: +LEVOFLOXACIN750 M2 PO
== END 2024-04-29 20:59 | disposition home or self-care (01) ==
LOC: ED 17:55
DX: S93.602A Unspecified sprain of left foot, initial encounter (principal); Z88.6 Allergy status to analgesic agent; Z88.8 Allergy status to other drugs, medicaments and biological substances; Z98.890 Other specified postprocedural states; Z90.89 Acquired absence of other organs; X58.XXXA Exposure to other specified factors, initial encounter; Y93.89 Activity, other specified; Y92.89 Other specified places as the place of occurrence of the external cause; Y99.8 Other external cause status

== ENCOUNTER → 2024-06-17 | Outpatient (CLI) | payer OTHER, MEDICAID ==
[~2024-06-17] MED LIST changes: +HYDROXYZINE PAM50 MG PO; +PREDNISONE1 MG PO
[2024-06-17 14:31] LABS: BASO # 0.1 10*3/uL (0.0-0.1); BASO % 0.4 % (0.0-1.0); EOS % 0.2 % (1.0-4.0); HEMATOCRIT 49.7 % (42.0-52.0); LYMPH # 2.9 10*3/uL (1.3-4.4); MEAN CELL VOLUME 89.4 fl (80.0-94.0); MEAN CORPUSCULAR HGB 29.9 pg (27.0-31.0); MEAN CORPUSCULAR HGB CONC 33.4 g/dl (33.0-37.0); MEAN PLATELET VOLUME 9.8 fl (9.6-12.3); MONO # 0.5 10*3/uL (0.1-1.0); NEUT # 7.6 10*3/uL (2.3-7.9); NEUT % 67.5 % (47.0-73.0); PLATELET COUNT AUTOMATED 229 10*3/uL (130-400); RED BLOOD COUNT 5.56 10*6/uL (4.50-5.90); RED CELL DISTRI WIDTH 12.9 % (0-14.5); WHITE BLOOD COUNT 11.2 10*3/uL (4.8-10.8)
[2024-06-17 14:54] LABS: ALKALINE PHOSPHATASE 118 U/L (46-116); BUN 11 mg/dl (9-23); CHLORIDE 109 mmol/L (98-107); POTASSIUM 3.9 mmol/L (3.4-5.1); SGPT/ALT 13 U/L (5-49); TOTAL PROTEIN 6.9 gm/dL (6.0-8.0)
== END | disposition home or self-care (01) ==
LOC: LAB 14:02
PROVIDERS: Internal Medicine Rheumatology; ATTEND Internal Medicine
DX: Z12.5 Encounter for screening for malignant neoplasm of prostate (principal); Z79.899 Other long term (current) drug therapy

== ENCOUNTER 2024-07-10 20:39 | Emergency (ER) | payer OTHER, MEDICAID ==
[~2024-07-10] VITALS: Ht 185 cm; Wt 123.6 kg
[2024-07-10] MEDS ORDERED: HYDROmorphONE Hydrochloride 1 MG/ML SYR IV ONE ×2 (21:30→22:55)
[2024-07-10] MEDS ORDERED: Ondansetron Hydrochloride 4 MG/2 ML VIAL IV ONE (21:30)
[2024-07-10] MEDS ORDERED: METHOCARBAMOL 750 MG TAB PO ONE (21:30)
[2024-07-11] MEDS ORDERED: HYDROmorphONE Hydrochloride 1 MG/ML SYR IV ONE (00:55)
== END 2024-07-11 02:08 | disposition short-term general hospital (02) ==
LOC: ED 20:39
DX: S42.202A Unspecified fracture of upper end of left humerus, initial encounter for closed fracture (principal); Z88.6 Allergy status to analgesic agent; Z88.8 Allergy status to other drugs, medicaments and biological substances; Z96.652 Presence of left artificial knee joint; Z98.890 Other specified postprocedural states; Z90.89 Acquired absence of other organs; W10.9XXA Fall (on) (from) unspecified stairs and steps, initial encounter; Y93.89 Activity, other specified; Y92.009 Unspecified place in unspecified non-institutional (private) residence as the place of occurrence of the external cause; Y99.8 Other external cause status

== ENCOUNTER → 2025-01-10 | Outpatient (CLI) | payer OTHER, MEDICAID | END | disposition home or self-care (01) | LOC: US 01-06 07:30 | PROVIDERS: ATTEND Internal Medicine Nephrology | DX: K80.20 Calculus of gallbladder without cholecystitis without obstruction (principal); M05.79 Rheumatoid arthritis with rheumatoid factor of multiple sites without organ or systems involvement; N18.31 Chronic kidney disease, stage 3a; R35.0 Frequency of micturition ==

== ENCOUNTER 2025-03-28 07:43 | Emergency (ER) | payer OTHER, MEDICAID ==
[~2025-03-28] VITALS: Ht 185.4 cm; Wt 116.1 kg
[2025-03-28] MEDS ORDERED: PREDNISONE20 M1 PO (09:07)
[2025-03-28] MEDS ORDERED: predniSONE 20 MG TAB PO ONE (09:10)
== END 2025-03-28 09:37 | disposition home or self-care (01) ==
LOC: ED 07:43
DX: M25.532 Pain in left wrist (principal); Z79.899 Other long term (current) drug therapy; Z88.6 Allergy status to analgesic agent; Z88.8 Allergy status to other drugs, medicaments and biological substances; Z98.890 Other specified postprocedural states